=== PATIENT | female | born 1980 | race Caucasian/White ===

== ENCOUNTER 2019-05-23 23:36 | Emergency (ER) | payer OTHER, SELFPAY ==
[2019-05-23 23:43] VITALS: BP 145/87; PULSE 92; RESP 16; TEMP 36.6; O2SAT 98
--- NOTE | 2019-05-24 00:01 | ED.FEVER ---
HPI - Fever General Chief Complaint: Fever Stated Complaint: sinus pressure pain/ headache/ uti sx/ fever Time Seen by Provider: 05/23/19 23:58 Source: patient Mode of arrival: ambulatory Limitations: no limitations History of Present Illness HPI Narrative: Pt is a 38 y/o female who presents to the ED with c/o a fever of 101 and chills that started today. Pt states that she has had congestion, lt sinus pressure, CAZARES, sore throat, and otalgia for a couple of days. Last night she noticed dysuria that worsened today. She has been taking Tylenol, Mucinex, Zyrtec, and Afrin with some relief. Pt notes that her roommate was Dx with bronchitis last week and she had similar Sx. Pt was Dx with a kidney infection in October 2018 and her dysuria feels similar to when she had the kidney infection. She denies any recent foreign or domestic travel. elicited complaint: fever Onset (ago): day(s) (today) Measured temperature: 38.3 C Context: sick contacts Relieving factors: acetaminophen and cold medicine Associated symptoms: chills, dysuria and other (inus congestion, lt sinus pressure, CAZARES, throat, and otalgia) Related Data Allergies Allergy/AdvReac Type Severity Reaction Status Date / Time No Known Allergies Allergy Verified 03/08/19 05:55 Review of Systems Review of Systems: All systems reviewed & are unremarkable except as noted in HPI and below Constitutional: Constitutional: Reports chills and Reports fever(s) ENT: Reports otalgia, Reports nasal congestion, Reports sinus pain, Reports sinus pressure and Reports sore throat Genitourinary: Genitourinary: Reports dysuria Neurologic: Reports headache(s) PMFSH Past Medical History Medical History (Updated 05/24/19 @ 01:00 by Johnna Romero MD) ADD (attention deficit disorder) Anxiety Colitis Depression Perforated nasal septum Surgical History Surgical History (Updated 05/24/19 @ 00:23 by Lauro Underwood) No significant past surgical history Social History Social History Smoking status: Never smoker Alcohol intake: current Exam Narrative: Exam Narrative: GENERAL: Well-appearing, well-nourished, and in no acute distress. HEAD: Normocephalic, atraumatic. EYES: PERRLA and EOMI. ENT: Nares clear, no rhinorrhea or epistaxis. Mucous membranes moist. TM clear. Mild maxillary tenderness. NECK: Supple. CHEST: Clear to auscultation. No respiratory distress. HEART: Regular rate and rhythm. No murmur heard. Normal peripheral pulses. ABDOMEN: Soft, nontender, nondistended, normal active bowel sounds. EXTREMITIES: Normal range of motion. No edema. SKIN: Warm, dry, no rash. NEURO: No focal deficits. Alert and oriented X3. Course Vital Signs Vital signs: Vital Signs Temperature 36.6 C 05/23/19 23:43 Pulse Rate 92 05/23/19 23:43 Respiratory Rate 16 05/23/19 23:43 Blood Pressure 145/87 H 05/23/19 23:43 Pulse Oximetry 98 05/23/19 23:43 Temperature 36.6 C 05/23/19 23:43 Pulse Rate 92 05/23/19 23:43 Respiratory Rate 16 05/23/19 23:43 Blood Pressure 145/87 H 05/23/19 23:43 Pulse Oximetry 98 05/23/19 23:43 MDM - Fever MDM Narrative Medical decision making narrative: Patient presented for evaluation of sinus pain, sore throat, and urinary frequency, dysuria. Patient is well-appearing, no sign of otitis media or strep pharyngitis on exam. Patient does have's findings which are consistent with viral sinusitis. She is well-appearing, afebrile. No cervical lymphadenopathy. No respiratory distress. Patient found to have a urinary tract infection, given symptoms, will treat with antibiotic as this is most consistent with cystitis that she has no back pain and no findings concerning for pyelonephritis at this point. Patient was then discharged home with antibiotic, advised to continue Flonase, other symptomatic care for sinusitis. Lab Data Labs: Lab Results 05/24/19 Range/Units 00:27
[2019-05-24 00:38] LABS: Add Urine Microscopic? YES; Appearance Urine Cloudy (Clear); Bilirubin Urine Negative (Negative); Blood Urine Negative (Negative); Color Urine Yellow (Yellow); Glucose Urine UA Negative (Negative); Ketones Urine Negative (Negative); Leukocyte Esterase Ur 2+ LEU/UL (Negative); Mucus Urine Few /lpf; Nitrate Urine Negative (Negative); Protein Urine 1+ mg/dL (Negative); Specific Grav Ur 1.023 (1.001-1.035); Squamous Epithelial Cell Urine Moderate /hpf (Few); Urobilinogen Urine Negative mg/dL (<2.0); WBC Urine >75 /hpf
[2019-05-24 01:09] VITALS: BP 132/81; PULSE 85; RESP 16; TEMP 36.5; O2SAT 99
== END 2019-05-24 01:11 | disposition home or self-care (01) ==
PROVIDERS: Emergency Provider Emergency Medicine; PCP Family Medicine
DX: N30.00 Acute cystitis without hematuria (principal); J01.00 Acute maxillary sinusitis, unspecified
CPT/HCPCS: 81001; 87077; 87081; 87086; 87088; 87804; 87880; 99283

== ENCOUNTER 2019-09-10 23:38 | Emergency (ER) | payer OTHER, SELFPAY ==
--- NOTE | ~2019-09-10 | XR_ITS ---
EXAMINATION: XR chest 1V portable DATE: 09/11/2019 00:29 INDICATION: Weakness TECHNIQUE: frontal view of the chest was obtained. COMPARISON: None FINDINGS: The lungs are clear with no focal airspace opacities, pulmonary edema, pleural effusion or pneumothor ax. The cardiomediastinal silhouette is normal. Visualized bones and soft tissues are unremarkable. IMPRESSION: 1. No acute cardiopulmonary disease. Reviewed, dictated and finalized at location A.
[2019-09-11 00:03] VITALS: BP 117/86; PULSE 101; PULSE 93; RESP 18; TEMP 37.4; O2SAT 97
[2019-09-11] MEDS: SODIUM CHLORIDE 0.9% IV 1,000 ML 999 ML IV CONT (00:48)
[2019-09-11 00:58] LABS: Basophils Percent Auto 0.5 % (0.2-1.2); Eosinophils Absolute Auto 0.3 K/mm3 (0-0.3); Eosinophils Percent Auto 4.1 % (0-4.4); Hemoglobin 13.1 g/dL (12.0-15.0); Immature Granulocyte Absolute 0.02 K/mm3 (0.00-0.031); Immature Granulocyte Percent A 0.3 % (0-0.5); Lymphocytes Absolute Auto 1.01 K/mm3 (0.9-3.2); Mean Corpuscular HGB Conc 32.8 g/dl (32-36); Mean Corpuscular Hemoglobin 28.5 pg (26-34); Mean Corpuscular Volume 87.1 fl (80-100); Mean Platelet Volume 9.9 fl (7.4-10.4); Monocytes Absolute Auto 0.8 K/mm3 (0.1-0.6); Monocytes Percent Auto 13.3 % (2.6-8.5); Neutrophils Absolute Auto 4.2 K/mm3 (1.3-6.7); Neutrophils Percent Auto 65.8 % (45.5-73.1); Platelet Count Result 294 k/mm3 (150-375); Red Blood Count 4.59 M/mm3 (4.2-5.4); Red Cell Distribution Width 12.5 % (11.5-14.5); White Blood Count 6.3 K/mm3 (4.5-10.0)
[2019-09-11 01:03] LABS: Alanine Aminotransferase 22 U/L (4-35); Albumin Level 4.3 g/dL (3.5-5.1); Alkaline Phosphatase 45 U/L (38-126); Aspartate Amino Transferase 27 U/L (14-36); Bilirubin,Total < 0.1 mg/dL (0.2-1.3); Blood Urea Nitrogen 10 mg/dL (7-17); Carbon Dioxide 24 mmol/L (22-30); Chloride 103 mmol/L (98-107); Estimated Glomerular Filt Rate > 60; Glucose 106 mg/dL (65-105); Potassium 3.6 mmol/L (3.4-5.0); Sodium 136 mmol/L (137-145)
[2019-09-11 01:14] LABS: Add Urine Microscopic? YES; Appearance Urine Clear (Clear); Bilirubin Urine Negative (Negative); Blood Urine 1+ (Negative); Color Urine Yellow (Yellow); Glucose Urine UA Negative (Negative); Ketones Urine Negative (Negative); Leukocyte Esterase Ur Negative LEU/UL (Negative); Mucus Urine Few /lpf; Nitrate Urine Negative (Negative); Protein Urine Negative (Negative); Specific Grav Ur 1.024 (1.001-1.035); Squamous Epithelial Cell Urine Occasional /hpf (Few); Urobilinogen Urine Negative mg/dL (<2.0); WBC Urine 0-3 /hpf
[2019-09-11] MEDS: KETOROLAC 30 MG/ML VIAL (*BKC) IV PUSH (01:37)
[2019-09-11 01:54] VITALS: BP 131/92; PULSE 93; RESP 21; O2SAT 100
--- NOTE | 2019-09-11 02:41 | ED.GENADULT ---
HPI - General Adult General Chief complaint: Weakness Stated complaint: cough, body aches, weakness Time Seen by Provider: 09/10/19 23:42 Source: RN notes reviewed History of Present Illness HPI narrative: Patient presents emergency department from home for multiple complaints. Patient states that beginning 4 days ago she experienced generalized fatigue with body aches sore throat nonproductive cough abdominal cramping and diarrhea patient states that she tried taking Tylenol at home with no relief. She denies any fevers or chills ear pain shortness of breath vomiting or any other symptoms. She states she was at a the day before the symptoms started Related Data Allergies Allergy/AdvReac Type Severity Reaction Status Date / Time No Known Allergies Allergy Verified 09/11/19 01:14 Review of Systems Review of Systems: Narrative: Gen.: Denies fevers or chills reports malaise Eyes: Denies eye pain or visual change ENT: Denies rhinorrhea and sore throat Respiratory: Denies shortness of breath reports cough CV: Denies chest pain or palpitations GI: Reports abdominal cramping and diarrhea denies vomiting or emesis denies burning, urgency, frequency or hematuria Musculoskeletal: Reports low back pain Neuro: Denies numbness, tingling, weakness or focal weakness reports intermittent headache Skin: Denies rash Except as documented, all other systems reviewed and negative PMFSH Past Medical History Medical History (Updated 09/11/19 @ 02:45 by Carlos Waldron DO) Patient denies significant medical history Social History Social History (Updated 09/11/19 @ 02:43 by Carlos Waldron DO) Smoking status: Never smoker Exam Narrative: Exam Narrative: APPEARANCE: No acute distress, nontoxic, resting in bed EYES: EOMI, Sanjay HEENT: Normocephalic, atraumatic, bilateral turbinates boggy, oromucosa moist Neck: Supple full range of motion without pain, no managements RESPIRATORY: No respiratory distress Clear to auscultation bilaterally with no rhonchi wheezing or rales. CARDIOVASCULAR: Regular rate and rhythm without murmurs rubs or gallops. ABDOMINAL: Soft, nontender, nondistended, no rebound or guarding MUSCULOSKELETAl: Moves all extremities. No clubbing, cyanosis or edema. NEURO: Awake and alert x 3. Following commands, speech normal, no focal deficits SKIN:: Warm, dry. No rashes lesions or abrasions PSYCHIATRIC: Normal affect/mood, Course Course Emergency Course: Discussed with patient results of workup and diagnosis. Discussed need for follow-up with primary care, proper use of medication, and reasons to return to the emergency department. Patient understands and agrees to current treatment plan. Discussed with patient covert swab need for self isolation patient in agreement at this time Vital Signs Vital signs: Vital Signs Temperature 99.3 F 09/11/19 00:03 Pulse Rate 101 H 09/11/19 00:03 Respiratory Rate 18 09/11/19 00:03 Blood Pressure 117/86 09/11/19 00:03 Pulse Oximetry 97 09/11/19 00:03 Temperature 99.3 F 09/11/19 00:03 Pulse Rate 93 09/11/19 01:54 Respiratory Rate 21 H 09/11/19 01:54 Blood Pressure 131/92 H 09/11/19 01:54 Pulse Oximetry 100 09/11/19 01:54 Medical Decision Making Vital Signs Vital Signs: Vital Signs Temperature 99.3 F 09/11/19 00:03 Pulse Rate 101 H 09/11/19 00:03 Respiratory Rate 18 09/11/19 00:03 Blood Pressure 117/86 09/11/19 00:03 Pulse Oximetry 97 09/11/19 00:03 Temperature 99.3 F 09/11/19 00:03 Pulse Rate 93 09/11/19 01:54 Respiratory Rate 21 H 09/11/19 01:54 Blood Pressure 131/92 H 09/11/19 01:54 Pulse Oximetry 100 09/11/19 01:54 Lab Data Result diagrams: 09/11/19 00:45 09/11/19 00:45 Labs: Lab Results 09/11/19 09/11/19 09/11/19 Range/Units 00:45 00:45 00:46 WBC 6.3 (4.5-10.0) K/mm3 RBC 4.59 (4.2-5.4) M/mm3 Hgb 13.1 (12.0-15.0) g/dL Hct 40.0 (37.0
[2019-09-11 03:02] VITALS: BP 131/89; PULSE 78; RESP 15; O2SAT 96
[2019-09-12 21:03] LABS: SARS-CoV-2 RNA PCR Positive
== END 2019-09-11 03:04 | disposition home or self-care (01) ==
PROVIDERS: Emergency Provider Emergency Medicine
DX: U07.1 COVID-19 (principal)
CPT/HCPCS: 36415; 71045; 80053; 81001; 81025; 85025; 87081; 87635; 87880; 96361; 96374; 99284; C9803; J1885; J7030; U0003

== ENCOUNTER 2020-04-18 19:57 | Emergency (ER) | payer OTHER, SELFPAY ==
--- NOTE | ~2020-04-18 | XR_ITS ---
EXAMINATION: XR chest 1V portable DATE: 04/18/2020 22:02 INDICATION: Upper back pain with movement TECHNIQUE: frontal view of the chest was obtained. COMPARISON: Chest radiograph dated 09/11/2019 FINDINGS: Minimal lingular linear discoid atelectasis at the costophrenic angle. Lungs remain otherwise clear w ith no other airspace opacities, pulmonary edema, pleural effusion or pneumothorax. The cardiomediast inal silhouette is normal. Mild thoracic levocurvature. IMPRESSION: 1. Minimal lingular discoid atelectasis. Reviewed, dictated and finalized at location A. RIGGER
[2020-04-18 20:01] VITALS: BP 144/88; PULSE 99; RESP 16; TEMP 36.1; O2SAT 100
--- NOTE | 2020-04-18 21:52 | ECG_ITS ---
Measurements Intervals Mandan Rate: 82 P: 71 MA: 134 QRS: 74 QRSD: 97 T: 58 QT: 351 QTc: 412 Interpretive Statements SINUS RHYTHM INCOMPLETE RIGHT BUNDLE BRANCH BLOCK BORDERLINE ECG Electronically Signed On 04-19-2020 6:26:49 MANAGER SYSTEM by Surinder Aj D.O.
[2020-04-18 22:14] LABS: Basophils Percent Auto 0.3 % (0.2-1.2); Eosinophils Absolute Auto 0.2 K/mm3 (0-0.3); Hematocrit 43.6 % (37.0-47.0); Hemoglobin 14.2 g/dL (12.0-15.0); Immature Granulocyte Absolute 0.03 K/mm3 (0.00-0.031); Immature Granulocyte Percent A 0.4 % (0-0.5); Lymphocytes Absolute Auto 2.82 K/mm3 (0.9-3.2); Lymphocytes Percent Auto 38.4 % (18.3-44.2); Mean Corpuscular HGB Conc 32.6 g/dl (32-36); Mean Corpuscular Hemoglobin 28.9 pg (26-34); Mean Corpuscular Volume 88.6 fl (80-100); Mean Platelet Volume 9.5 fl (7.4-10.4); Monocytes Absolute Auto 0.7 K/mm3 (0.1-0.6); Monocytes Percent Auto 9.1 % (2.6-8.5); Neutrophils Absolute Auto 3.7 K/mm3 (1.3-6.7); Neutrophils Percent Auto 49.8 % (45.5-73.1); Platelet Count Result 315 k/mm3 (150-375); Red Blood Count 4.92 M/mm3 (4.2-5.4); Red Cell Distribution Width 12.7 % (11.5-14.5); White Blood Count 7.4 K/mm3 (4.5-10.0)
[2020-04-18 22:18] VITALS: PULSE 91; RESP 15
[2020-04-18 22:19] VITALS: BP 149/107; PULSE 96; RESP 16
[2020-04-18 22:26] LABS: Alanine Aminotransferase 23 U/L (4-35); Albumin Level 4.4 g/dL (3.5-5.1); Alkaline Phosphatase 47 U/L (38-126); Anion Gap 6 mmol/L (8-16); Aspartate Amino Transferase 31 U/L (14-36); Bilirubin,Total 0.2 mg/dL (0.2-1.3); Blood Urea Nitrogen 13 mg/dL (7-17); Calcium 9.5 mg/dL (8.4-10.2); Carbon Dioxide 30 mmol/L (22-30); Chloride 102 mmol/L (98-107); Estimated CRCL calculation 81 ml/min; Estimated Glomerular Filt Rate > 60; Glucose 87 mg/dL (65-105); Potassium 3.8 mmol/L (3.4-5.0); Sodium 138 mmol/L (137-145)
[2020-04-18] MEDS: KETOROLAC 30 MG/ML VIAL (*BKC) IV PUSH (22:26)
[2020-04-18] MEDS: ORPHENADRINE CITRATE 100 MG TABLET.ER PO (22:26)
[2020-04-18] MEDS: ONDANSETRON INJ 4 MG/2 ML VIAL (22:27)
[2020-04-18] MEDS: MORPHINE SULFATE (*CRX) 4 MG/ML INJ IV PUSH (22:27)
[2020-04-18 22:33] LABS: D Dimer 0.27 ug/mL (<0.48)
[2020-04-18 22:38] LABS: Troponin I < 0.012 ng/mL (0.000-0.034)
--- NOTE | 2020-04-18 23:04 | ED.GENADULT ---
HPI - General Adult General Chief complaint: Back Pain/Injury Stated complaint: upper back pain Time Seen by Provider: 04/18/20 21:45 History of Present Illness HPI narrative: Patient is a 39-year-old female that presents the emergency department with chief complaint of upper back pain. Patient states in the left upper back in the scapular area she has a spasm pain area patient reports that the pain is worse with movement and improved with rest. Patient denies focal neurological deficit denies paresthesias denies bowel or bladder. Patient reports that the pain is worse with inspiration Related Data Allergies Allergy/AdvReac Type Severity Reaction Status Date / Time No Known Allergies Allergy Verified 04/18/20 20:00 Review of Systems Review of Systems: Narrative: A 10 system review of systems was completed on the patient and is negative except for what is stated in the HPI. Nursing and ancillary documentation was reviewed. [facility], [facility] Past Medical History Medical History Patient denies significant medical history Social History Social History Smoking status: Never smoker Gender identity (if verbalized by the patient): Female Exam Narrative: Exam Narrative: GENERAL: Well-appearing, well-nourished, and in no acute distress. HEAD: Normocephalic, atraumatic. EYES: PERRLA and EOMI. ENT: Nares clear, no rhinorrhea or epistaxis. Mucous membranes moist. NECK: Supple. CHEST: Clear to auscultation. No respiratory distress., There is tenderness to palpation in the paraspinous muscles in the back, left side HEART: Regular rate and rhythm. No murmur heard. Normal peripheral pulses. ABDOMEN: Soft, nontender, nondistended, normal active bowel sounds. EXTREMITIES: Normal range of motion. No edema. SKIN: Warm, dry, no rash. NEURO: No focal deficits. Alert and oriented x3. PSYCH: Normal mood and affect. Course Course Emergency Course: Patient was given a dose of Toradol morphine and Norflex. Chest x-ray shows no evidence of focal finding. EKG shows no evidence of acute ischemia D-dimer was negative. Troponin was negative. Vital Signs Vital signs: Vital Signs Temperature 36.1 C L 04/18/20 20:01 Pulse Rate 99 04/18/20 20:01 Respiratory Rate 16 04/18/20 20:01 Blood Pressure 144/88 H 04/18/20 20:01 Pulse Oximetry 100 04/18/20 20:01 Temperature 36.1 C L 04/18/20 20:01 Pulse Rate 96 04/18/20 22:19 Respiratory Rate 16 04/18/20 22:19 Blood Pressure 149/107 H 04/18/20 22:19 Pulse Oximetry 100 04/18/20 20:01 Medical Decision Making Vital Signs Vital Signs: Vital Signs Temperature 36.1 C L 04/18/20 20:01 Pulse Rate 99 04/18/20 20:01 Respiratory Rate 16 04/18/20 20:01 Blood Pressure 144/88 H 04/18/20 20:01 Pulse Oximetry 100 04/18/20 20:01 Temperature 36.1 C L 04/18/20 20:01 Pulse Rate 96 04/18/20 22:19 Respiratory Rate 16 04/18/20 22:19 Blood Pressure 149/107 H 04/18/20 22:19 Pulse Oximetry 100 04/18/20 20:01 Lab Data Result diagrams: 04/18/20 22:03 04/18/20 22:03 Labs: Lab Results 04/18/20 04/18/20 04/18/20 Range/Units 22:03 22:03 22:03 WBC 7.4 (4.5-10.0) K/mm3 RBC 4.92 (4.2-5.4) M/mm3 Hgb 14.2 (12.0-15.0) g/dL Hct 43.6 (37.0-47.0) % MCV 88.6 (80-100) fl MCH 28.9 (26-34) pg MCHC 32.6 (32-36) g/dl RDW 12.7 (11.5-14.5) % Plt Count 315 (150-375) k/mm3 MPV 9.5 (7.4-10.4) fl Immature Gran % (Auto) 0.4 (0-0.5) % Neut % (Auto) 49.8 (45.5-73.1) % Lymph % (Auto) 38.4 (18.3-44.2) % Forrest % (Auto) 9.1 H (2.6-8.5) % Eos % (Auto) 2.0 (0-4.4) % Baso % (Auto) 0.3 (0.2-1.2) % Lymph # (Auto) 2.82 (0.9-3.2) K/mm3 Forrest # (Auto) 0.7 H (0.1-0.6) K/mm3 Eos # (Auto) 0.2 (0-0.3) K/mm3 Baso # (Auto) 0.0 (0.0-0.1) K/mm
[2020-04-18 23:32] VITALS: BP 151/94; PULSE 86; RESP 16; O2SAT 96
== END 2020-04-18 23:34 | disposition home or self-care (01) ==
PROVIDERS: Emergency Provider Emergency Medicine
DX: S29.019A Strain of muscle and tendon of unspecified wall of thorax, initial encounter (principal); X58.XXXA Exposure to other specified factors, initial encounter
CPT/HCPCS: 36415; 71045; 80053; 81025; 84484; 85025; 85380; 93005; 96374; 96375; 99284; A9270; J1885; J2270; J2405

== ENCOUNTER 2020-09-05 13:25 | Outpatient (CLI) | payer OTHER, SELFPAY ==
[2020-09-05 14:03] LABS: Basophils Percent Auto 0.3 % (0.2-1.2); Eosinophils Absolute Auto 0.2 K/mm3 (0-0.3); Hematocrit 43.5 % (37.0-47.0); Hemoglobin 14.1 g/dL (12.0-15.0); Immature Granulocyte Absolute 0.03 K/mm3 (0.00-0.031); Immature Granulocyte Percent A 0.3 % (0-0.5); Lymphocytes Absolute Auto 2.09 K/mm3 (0.9-3.2); Lymphocytes Percent Auto 21.3 % (18.3-44.2); Mean Corpuscular HGB Conc 32.4 g/dl (32-36); Mean Corpuscular Volume 89.3 fl (80-100); Mean Platelet Volume 9.7 fl (7.4-10.4); Neutrophils Absolute Auto 6.5 K/mm3 (1.3-6.7); Neutrophils Percent Auto 66.1 % (45.5-73.1); Platelet Count Result 288 k/mm3 (150-375); Red Blood Count 4.87 M/mm3 (4.2-5.4); Red Cell Distribution Width 12.8 % (11.5-14.5); White Blood Count 9.8 K/mm3 (4.5-10.0)
[2020-09-05 14:15] LABS: Alanine Aminotransferase 19 U/L (4-35); Albumin Level 4.7 g/dL (3.5-5.1); Alkaline Phosphatase 46 U/L (38-126); Anion Gap 10 mmol/L (8-16); Aspartate Amino Transferase 28 U/L (14-36); Bilirubin,Total 0.4 mg/dL (0.2-1.3); Blood Urea Nitrogen 11 mg/dL (7-17); Calcium 9.7 mg/dL (8.4-10.2); Carbon Dioxide 25 mmol/L (22-30); Chloride 103 mmol/L (98-107); Cholesterol 154 mg/dL (0-200); Estimated Glomerular Filt Rate > 60; Glucose 86 mg/dL (65-105); HDL Direct 84 mg/dL; Potassium 4.3 mmol/L (3.4-5.0); Sodium 138 mmol/L (137-145); Triglycerides 92 mg/dL (<150)
[2020-09-05 14:26] LABS: LDL Cholesterol Direct 36 mg/dL
[2020-09-05 15:58] LABS: Vitamin D 25 Hydroxy 40.7 ng/mL
[2020-09-05 16:22] LABS: Hepatitis C Virus Antibody Negative (Negative)
[2020-09-06 09:22] LABS: Rapid Plasma Reagin Non-Reactive (NonReactive)
[2020-09-09 00:33] LABS: HIV DNA PCR (Qual) Not Detected (Not Detected)
== END 2020-09-05 13:26 | disposition home or self-care (01) ==
PROVIDERS: PCP Family Medicine; Visit Provider Nurse Practitioner
DX: Z13.6 Encounter for screening for cardiovascular disorders (principal); Z11.3 Encounter for screening for infections with a predominantly sexual mode of transmission; R53.83 Other fatigue; E55.9 Vitamin D deficiency, unspecified
CPT/HCPCS: 36415; 80053; 80061; 82306; 84443; 85025; 86592; 86803; 87535

== ENCOUNTER 2021-06-12 19:07 | Emergency (ER) | payer OTHER, SELFPAY ==
--- NOTE | 2021-06-12 19:13 | ED.URI ---
HPI - URI/Sore Throat General Chief Complaint: Upper Respiratory Infection Stated Complaint: COUGH Time Seen by Provider: 06/12/21 19:10 Source: patient and RN notes reviewed History of Present Illness HPI Narrative: Patient is a 40-year-old female who presents the urgent care with complaints of 1 week cough, stuffy nose, fatigue, runny nose, wheezing and intermittent shortness of breath. Patient states that it started when she arrived to [place] 1 week ago and seems to have worsened in the last 2 days after coming home. Patient states that she is takes a daily Zyrtec-D and has been using Tylenol Cold and flu, NyQuil and Benadryl. Patient states that when she lays down the wheezing is worse. Denies of any fever, chills, nausea, vomiting. States that the cough is sometimes productive with clear drainage. No other acute complaints. No acute distress noted. Patient aware of the plan of care. Some parts of this dictation were generated by voice recognition software and may contain typographical and/or grammatical inaccuracies. Related Data Home Medications Medication Instructions Recorded Confirmed etonogestrel 0.12 mg-ethinyl vag ring VAGINAL 09/04/20 01/02/21 estradiol 0.015 mg/24 hr vaginal ring cetirizine 10 mg disintegrating 10 mg PO DAILY 10/03/20 01/02/21 tablet Allergies Allergy/AdvReac Type Severity Reaction Status Date / Time No Known Allergies Allergy Verified 03/06/21 12:22 Review of Systems Review of Systems: CONSTITUTIONAL: Denies fever, chills, or sweats. EYES: Denies visual changes, redness, or discharge. ENT: Reports rhinorrhea, postnasal drainage and sinus congestion CARDIOVASCULAR: Denies chest pain, palpitations, or edema. RESPIRATORY: Reports of cough with intermittent wheezing and dyspnea GASTROINTESTINAL: Denies abdominal pain, nausea, vomiting, or diarrhea. GENITOURINARY: Denies dysuria or hematuria. SKIN: Denies rash or itching. MUSCULOSKELETAL: Denies back pain, joint pain, or myalgia. NEUROLOGIC: Denies headache, numbness, or weakness. All other systems reviewed are negative, except as documented in HPI. [facility] Past Medical History Medical History ADD (attention deficit disorder) Anxiety Colitis Depression Patient denies significant medical history Patient denies significant medical history Patient denies significant medical history Perforated nasal septum Surgical History Surgical History No significant past surgical history Family History Family History (System 03/06/21 @ 12:22 by Kristine Samuel) Mother Family history of mental disorder Family history of alcoholism Social History Social History (System 03/06/21 @ 12:22 by Kristine Samuel) Smoking status: Never smoker Alcohol intake: current Gender identity (if verbalized by the patient): Female Comments At the time of my signature, I reviewed and agree with the nursing past medical, surgical, social, and family history. There is no relevant family history pertinent to the patient complaint. Exam Narrative: GENERAL: This is a well-nourished, well-developed patient, in no apparent distress. HEAD: normocephalic, atraumatic. EYES: PERRL. Sclera clear/white. Vision is grossly intact. EARS: External ears normal, auditory canals clear and without drainage, TMs normal without perforation. Hearing grossly intact. NOSE: External nose normal with no obvious nasal discharge, bilateral erythemic nares with clear rhinorrhea THROAT: Mucous membranes moist, posterior pharynx clear. Moderate postnasal drainage NECK: Neck supple CARDIOVASCULAR: Regular rate and rhythm without murmurs, gallops, or rubs. RESPIRATORY: Clear to auscultation. Breath sounds equal bilaterally. No wheezes, rales, or rhonchi. SKIN: warm, intact with no suspicious lesions or rash, good texture and turgor. NEURO: awake, alert, and oriented to p
[2021-06-12 19:17] VITALS: BP 140/90; PULSE 92; RESP 16; TEMP 36.6; O2SAT 99
== END 2021-06-12 19:32 | disposition home or self-care (01) ==
PROVIDERS: Emergency Provider Nurse Practitioner Family; PCP Family Medicine
DX: J40 Bronchitis, not specified as acute or chronic (principal); J30.9 Allergic rhinitis, unspecified
CPT/HCPCS: 87804; 99213; G0463

== ENCOUNTER 2021-08-16 10:19 | Outpatient (CLI) | payer OTHER, SELFPAY ==
--- NOTE | 2021-08-16 13:32 | WPDPFTINT ---
PFT Procedure Performed PFT Procedure Performed Spirometry with Pre/Post Bronchodilator Plethysmography (Lung Vol) Diffusing Cap (DLCO) Flow Vol Loop PFT Interpretation Lung volumes were measured with the body plethysmography method. Lung volumes are unremarkable. Spirometry showed normal expiratory flow rates, normal FEV1 to FVC ratio 73%, but diminished mid expiratory flow rates of 32% predicted suggestive of small airway disease. Following administration of a bronchodilator there was no significant increase in expiratory flow rates. The flow volume loop is consistent with a small airway disease. Lung diffusion capacity is within the normal range at 81% predicted. Impression: Small airway disease. No response to bronchodilators on this testing. Lung diffusion capacity within the normal range.
== END 2021-08-16 10:20 | disposition home or self-care (01) ==
PROVIDERS: PCP Family Medicine; Visit Provider Nurse Practitioner
DX: R06.02 Shortness of breath (principal); J44.9 Chronic obstructive pulmonary disease, unspecified
CPT/HCPCS: 94060; 94726; 94729

== ENCOUNTER 2021-10-10 16:07 | Outpatient (CLI) | payer OTHER, SELFPAY ==
--- NOTE | ~2021-10-10 | CT_ITS ---
EXAMINATION: CT diagnostic chest wo con DATE: 10/10/2021 16:28 INDICATION: Coughing, wheezing, SOB TECHNIQUE: Computed tomography (CT) of the chest was performed without intravenous contrast. Addition al 3D reconstructions utilizing coronal maximum intensity projection (MIP) were performed. Automated exposure control and iterative reconstruction technique were employed. The dose-length product was 12 1.99 mGy-cm. COMPARISON: None FINDINGS: Mild linear discoid atelectasis in the basilar left lower lobe and in the medial right middle lobe. L ungs are otherwise clear with no pneumonia, pulmonary edema, suspicious pulmonary nodules or pleural effusion. Heart size is normal. No pericardial effusion. Thoracic aorta is normal in caliber. No path ologically enlarged thoracic lymphadenopathy. Visualized upper abdomen is unremarkable. Mild S-shaped curvature of the thoracic spine. IMPRESSION: 1. No acute cardiopulmonary disease. Reviewed, dictated and finalized at location A.
== END 2021-10-10 16:08 | disposition home or self-care (01) ==
PROVIDERS: PCP Family Medicine; Visit Provider Physician Assistant
DX: J45.909 Unspecified asthma, uncomplicated (principal); R05.9 Cough, unspecified; M43.9 Deforming dorsopathy, unspecified
CPT/HCPCS: 71250

== ENCOUNTER 2022-07-03 17:19 | Outpatient (CLI) | payer OTHER, SELFPAY ==
[2022-07-03 17:34] LABS: Appearance Urine Clear (Clear); Bilirubin Urine Negative (Negative); Blood Urine Negative (Negative); Color Urine Yellow (Yellow); Glucose Urine UA Negative (Negative); Ketones Urine Negative (Negative); Leukocyte Esterase Ur Negative LEU/UL (NEGATIVE); Nitrate Urine Negative (Negative); Protein Urine Negative (Negative); Specific Grav Ur 1.004 (1.001-1.035); Urobilinogen Urine 0.2 mg/dL (<2.0)
[2022-07-03 17:38] LABS: Add Urine Microscopic? NO
== END 2022-07-03 17:20 | disposition home or self-care (01) ==
LOC: ANHLAB 17:20
PROVIDERS: PCP Family Medicine; Visit Provider Nurse Practitioner Family
DX: N89.8 Other specified noninflammatory disorders of vagina (principal); R30.9 Painful micturition, unspecified
CPT/HCPCS: 81003

== ENCOUNTER 2022-10-06 11:07 | Outpatient (CLI) | payer OTHER, SELFPAY ==
--- NOTE | ~2022-10-06 | CT_ITS ---
Head CT History: Headache Technique: Axial imaging of the brain was performed prior to and following intravenous administratio n of 100 cc of Omnipaque 350 contrast material.. Dose reduction technique was used on this scan by ut ilizing automated exposure control and iterative reconstruction technique. The dose-length product (D LP) was 1210.67 mGy-cm. Findings: There is no evidence of intracranial hemorrhage, mass lesion, or acute infarct. Focal rn chronic taryn lacunar infarct or dilated perivascular space noted in the left basal ganglia region. The ventri cles and subarachnoid spaces are normal in size. The calvarium appears normal. The visualized paran jose juan sinuses and mastoid air cells are clear. No abnormal postcontrast enhancement seen. Impression: No significant/acute abnormality seen. Focal chronic lacunar infarct versus dilated perivascular space in the left basal ganglia. Reviewed, dictated and finalized at [facility]. Impression: No significant/acute abnormality seen. Focal chronic lacunar infarct versus dilated perivascular space in the left bas al ganglia.
== END 2022-10-06 11:08 | disposition home or self-care (01) ==
LOC: ANHIMG 11:10
PROVIDERS: PCP Family Medicine; Visit Provider Nurse Practitioner Family
DX: R51.9 Headache, unspecified (principal)
CPT/HCPCS: 70470; Q9967

== ENCOUNTER 2022-10-31 01:47 | Day surgery (SDC) | payer OTHER, SELFPAY ==
[2022-10-23 12:38] VITALS: BMI 23.7
--- NOTE | 2022-10-23 13:32 | PC.NURSE ---
DISCUSSED AT LENGTH WITH PATIENT CONCERNING CONSTIPATION ISSUES AND IF SHE IS HAVING TROUBLE NEXT WEEK PRIOR TO PREP TO CALL AND WE CAN GET HER A 2 DAY PREP. PT VERBABLIZED UNDERSTANDING.
[2022-10-31 09:36] VITALS: BP 114/73; PULSE 90; RESP 20; TEMP 36.2; O2SAT 100; BMI 23.1
--- NOTE | 2022-10-31 09:41 | WPDANESEPPF ---
Anes - Initial Pre Proc Eval Procedure: Operation Date: 10/31/22 10:45 Proposed Procedures p Colonoscopy - Ross Hawthorne MD Date/Time: 10/31/22 09:41 Surgeon: Ross Hawthorne MD Pre Op Diagnosis: IBS Patient Data Age: 41 Gender: F Height: 1.55 m Weight: 55.6 kg Last Vital Signs Temp 36.2 C L 10/31/22 09:36 Pulse 90 10/31/22 09:36 Resp 20 10/31/22 09:36 BP 114/73 10/31/22 09:36 Pulse Ox 100 10/31/22 09:36 O2 Del Method Room Air 10/31/22 09:36 Allergies Allergy/AdvReac Type Severity Reaction Status Date / Time DAIRY PRODUCTS Allergy Intermediate Itching Uncoded 10/31/22 09:34 Home Medications Medication Instructions Recorded Confirmed Type cetirizine 10 mg disintegrating 10 mg PO DAILY 10/03/20 10/23/22 History tablet (Zyrtec) fluticasone propionate 50 1 - 2 spray intranasal BID #16 mL 03/06/21 10/23/22 Rx mcg/actuation nasal spray,suspension (Flonase Allergy Relief) albuterol sulfate 90 mcg/actuation 2 puff inhalation QID PRN 11/13/21 10/23/22 Rx aerosol inhaler shortness of breath or wheezing #8 grams etonogestrel 0.12 mg-ethinyl 1 vag ring vaginal .see comment #3 04/08/22 10/23/22 Rx estradiol 0.015 mg/24 hr vaginal ea ring buspirone 5 mg tablet 5 mg PO TID PRN anxiety #90 tabs 09/10/22 10/23/22 Rx diclofenac sodium 75 mg 75 mg PO BID #90 tabs 10/02/22 10/23/22 Rx tablet,delayed release triamcinolone acetonide 0.1 % 1 applic topical BID #80 grams 10/02/22 10/23/22 Rx topical ointment atorvastatin 10 mg tablet (Lipitor) 10 mg PO DAILY #90 tabs 10/07/22 10/23/22 Rx alprazolam 0.25 mg tablet (Xanax) 0.25 mg PO DAILY PRN anxiety 10/23/22 10/23/22 History aspirin 81 mg capsule 81 mg PO DAILY 10/23/22 10/23/22 History bisacodyl 5 mg tablet 15 mg PO PRN PRN Constipation 10/23/22 10/23/22 History ferrous sulfate 27 mg iron tablet 27 mg PO DAILY 10/23/22 10/23/22 History magnesium hydroxide 400 mg/5 mL 1,500 mg PO PRN PRN Constipation 10/23/22 10/23/22 History oral suspension (Milk of Magnesia) multivitamin 1 tablet PO DAILY 10/23/22 10/23/22 History dextroamphetamine-amphetamine 10 10 mg PO DAILY #30 tabs 10/29/22 10/31/22 Rx mg tablet (Adderall) trazodone 50 mg tablet 50 mg PO QHS PRN insomnia #30 tabs 10/29/22 10/31/22 Rx Patient hx anesthesia problems: none Family hx anesthesia problems: none Results Review: All pre-operative results and documents have been reviewed as part of the pre-operative evaluation. [facility] Past Medical History Medical History Abnormal CT of brain ADD (attention deficit disorder) Allergic asthma Anxiety Asthma Chronic urticaria Colitis Depression Frequent headaches Hx LEEP (loop electrosurgical excision procedure), cervix, 2006 Low grade squamous intraepith lesion on cytologic smear cervix (lgsil) Perforated nasal septum Surgical History Surgical History History of nasal septoplasty (~03/2021) Family History Family History Mother Family history of mental disorder Family history of alcoholism Social History Social History Smoking status: Never smoker Alcohol intake: current Substance use: never Substance use type: does not use Lack of Transportation: No Lack of Food: Never True Current Housing: I Have Housing Concerned About Future Housing: No Difficulty Paying Gas/Electric Bills: No Difficulty Paying for Meds: No Currently Unemployed: No Education: Associate Degree Difficulty w/ Childcare or Family Care: No Living arrangements: with family Occupation/Education: occupation Additional occupation/education comments: [employer] Gender identity (if verbalized by the patient): Female Spiritual care concerns: No Anes - Eval Final PreProcedure
[2022-10-31] MEDS: LACTATED RINGERS 1,000 ML 150 ML IV CONT (10:01)
--- NOTE | 2022-10-31 10:56 | PM.HPGS ---
History of Present Illness History of Present Illness Consent: Risks, benefits, and alternatives have been discussed and questions answered. Patient agrees to proceed with procedure. Chief complaint: IBS Narrative: Ana Arguello is a 41 year old female complains of a long history of constipation and abdominal pain. Patient has tried many if not most laxatives. She has abdominal pain relieved with bowel movements. She has been evaluated for allergies she said allergy testing is negative but she continues to follow-up with primary care service. Occasionally has bright red blood per rectum with wiping. Family history noncontributory. Patient presents today for colonoscopy. Review of Systems Review of Systems: Review of systems noncontributory. [facility] Past Medical History Medical History Abnormal CT of brain ADD (attention deficit disorder) Allergic asthma Anxiety Asthma Chronic urticaria Colitis Depression Frequent headaches Hx LEEP (loop electrosurgical excision procedure), cervix, 2006 Low grade squamous intraepith lesion on cytologic smear cervix (lgsil) Perforated nasal septum Surgical History Surgical History History of nasal septoplasty (~03/2021) Family History Family History Mother Family history of mental disorder Family history of alcoholism Social History Social History Smoking status: Never smoker Alcohol intake: current Substance use: never Substance use type: does not use Lack of Transportation: No Lack of Food: Never True Current Housing: I Have Housing Concerned About Future Housing: No Difficulty Paying Gas/Electric Bills: No Difficulty Paying for Meds: No Currently Unemployed: No Education: Associate Degree Difficulty w/ Childcare or Family Care: No Living arrangements: with family Occupation/Education: occupation 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 Gender identity (if verbalized by the patient): Female Spiritual care concerns: No Meds Home Medications and Allergies Home Medications Medication Instructions Recorded Confirmed Type cetirizine 10 mg disintegrating 10 mg PO DAILY 10/03/20 10/23/22 History tablet (Zyrtec) fluticasone propionate 50 1 - 2 spray intranasal BID #16 mL 03/06/21 10/23/22 Rx mcg/actuation nasal spray,suspension (Flonase Allergy Relief) albuterol sulfate 90 mcg/actuation 2 puff inhalation QID PRN 11/13/21 10/23/22 Rx aerosol inhaler shortness of breath or wheezing #8 grams etonogestrel 0.12 mg-ethinyl 1 vag ring vaginal .see comment #3 04/08/22 10/23/22 Rx estradiol 0.015 mg/24 hr vaginal ea ring buspirone 5 mg tablet 5 mg PO TID PRN anxiety #90 tabs 09/10/22 10/23/22 Rx diclofenac sodium 75 mg 75 mg PO BID #90 tabs 10/02/22 10/23/22 Rx tablet,delayed release triamcinolone acetonide 0.1 % 1 applic topical BID #80 grams 10/02/22 10/23/22 Rx topical ointment atorvastatin 10 mg tablet (Lipitor) 10 mg PO DAILY #90 tabs 10/07/22 10/23/22 Rx alprazolam 0.25 mg tablet (Xanax) 0.25 mg PO DAILY PRN anxiety 10/23/22 10/23/22 History aspirin 81 mg capsule 81 mg PO DAILY 10/23/22 10/23/22 History bisacodyl 5 mg tablet 15 mg PO PRN PRN Constipation 10/23/22 10/23/22 History ferrous sulfate 27 mg iron tablet 27 mg PO DAILY 10/23/22 10/23/22 History magnesium hydroxide 400 mg/5 mL 1,500 mg PO PRN PRN Constipation 10/23/22 10/23/22 History oral suspension (Milk of Magnesia) multivitamin 1 tablet PO DAILY 10/23/22 10/23/22 History dextroamphetamine-amphetamine 10 10 mg PO DAILY #30 tabs 10/29/22 10/31/22 Rx mg tablet (Adderall) trazodone 50 mg tablet 50 mg PO QHS PRN insomnia #30 tabs 10/29/22 10/31/22 Rx Allergies Allergy/AdvReac Type Severity Reactio
[2022-10-31 10:58] VITALS: BP 108/72; PULSE 86; RESP 21; O2SAT 99
[2022-10-31 11:08] VITALS: BP 108/72; PULSE 82; RESP 24; O2SAT 100
[2022-10-31 11:18] VITALS: BP 127/72; PULSE 88; RESP 36; O2SAT 100
== END 2022-10-31 11:33 | disposition home or self-care (01) ==
PROVIDERS: PCP Family Medicine; Visit Provider Internal Medicine Gastroenterology
PROC: 0DJD8ZZ Inspection of Lower Intestinal Tract, Via Natural or Artificial Opening Endoscopic (ICD-10-PCS; CPT 45378; principal; 2022-10-31 10:45)
DX: K59.00 Constipation, unspecified (principal); K64.8 Other hemorrhoids; J45.909 Unspecified asthma, uncomplicated; F41.9 Anxiety disorder, unspecified; L50.9 Urticaria, unspecified; F32.A Depression, unspecified; F98.8 Other specified behavioral and emotional disorders with onset usually occurring in childhood and adolescence; Z79.51 Long term (current) use of inhaled steroids; Z79.82 Long term (current) use of aspirin
CPT/HCPCS: 45378; J2704; J7120

== ENCOUNTER 2022-12-26 13:39 | Outpatient (CLI) | payer OTHER, SELFPAY ==
[2022-12-26 14:54] LABS: Lactic Acid Reflex 0.8 mmol/L (0.7-2.0)
[2022-12-26 15:00] LABS: Basophils Percent Auto 0.4 % (0.2-1.2); Eosinophils Absolute Auto 0.2 K/mm3 (0-0.3); Eosinophils Percent Auto 2.5 % (0-4.4); Hematocrit 43.8 % (37.0-47.0); Hemoglobin 13.8 g/dL (12.0-15.0); Immature Granulocyte Absolute 0.02 K/mm3 (0.00-0.031); Immature Granulocyte Percent A 0.2 % (0-0.5); Lymphocytes Absolute Auto 2.79 K/mm3 (0.9-3.2); Lymphocytes Percent Auto 32.7 % (18.3-44.2); Mean Corpuscular HGB Conc 31.5 g/dl (32-36); Mean Corpuscular Hemoglobin 29.1 pg (26-34); Mean Corpuscular Volume 92.4 fl (80-100); Mean Platelet Volume 10.2 fl (7.4-10.4); Neutrophils Absolute Auto 4.5 K/mm3 (1.3-6.7); Neutrophils Percent Auto 52.2 % (45.5-73.1); Platelet Count Result 330 k/mm3 (150-375); Red Blood Count 4.74 M/mm3 (4.2-5.4); Red Cell Distribution Width 12.9 % (11.5-14.5); White Blood Count 8.5 K/mm3 (4.5-10.0)
[2022-12-26 15:19] LABS: Alanine Aminotransferase 23 U/L (6-35); Albumin Level 4.7 g/dL (3.5-5.1); Alkaline Phosphatase 42 U/L (38-126); Anion Gap 9 mmol/L (8-16); Aspartate Amino Transferase 46 U/L (14-36); Bilirubin,Total 0.5 mg/dL (0.2-1.3); Blood Urea Nitrogen 13 mg/dL (7-17); Calcium 9.4 mg/dL (8.4-10.2); Carbon Dioxide 25 mmol/L (22-30); Chloride 102 mmol/L (98-107); Estimated Glomerular Filt Rate > 60; Glucose 70 mg/dL (65-110); Potassium 4.1 mmol/L (3.4-5.0); Sodium 136 mmol/L (137-145)
== END 2022-12-26 13:40 | disposition home or self-care (01) ==
LOC: ANHGOSHLAB 13:41
PROVIDERS: PCP Family Medicine; Visit Provider Nurse Practitioner Family
DX: R10.9 Unspecified abdominal pain (principal); I10 Essential (primary) hypertension
CPT/HCPCS: 36415; 80053; 83605; 85025; 87086

== ENCOUNTER 2022-12-30 14:45 | Outpatient (CLI) | payer OTHER, SELFPAY ==
--- NOTE | ~2022-12-30 | US_ITS ---
EXAMINATION: US transvaginal DATE: 12/30/2022 15:52 INDICATION: Right lower quadrant abdominal pain. TECHNIQUE: Multiple transvaginal sonographic images of the pelvis were obtained. COMPARISON: CT abdomen and pelvis 11/02/2018 FINDINGS: The uterus measures 7.7 x 3.2 x 5.3 cm. There is no free fluid in the pelvis. The endometrial complex measures 9 mm in thickness. There are small nabothian cysts in the cervix. The right ovary measures 3.3 x 1.5 x 1.6 cm. The left ovary measures 1.9 x 1.2 x 1.1 cm. There is normal vascular flow in the ovaries. IMPRESSION: 1. No etiology for the patient's symptoms. Reviewed, dictated and finalized at location E.
== END 2022-12-30 14:46 | disposition home or self-care (01) ==
PROVIDERS: PCP Family Medicine; Visit Provider Nurse Practitioner Family
DX: R10.10 Upper abdominal pain, unspecified (principal)
CPT/HCPCS: 76830

== ENCOUNTER 2023-09-19 15:34 | Emergency (ER) | payer OTHER, SELFPAY ==
--- NOTE | ~2023-09-19 | CT_ITS ---
Non-contrast CT scan of the Abdomen and Pelvis Clinical indication: Right flank pain Technique: 2.5 mm axial scans were obtained through the abdomen and pelvis without intravenous or or al contrast. Dose reduction technique was used on this scan by utilizing automated exposure control a nd iterative reconstruction technique. The dose-length product (DLP) was 236.26 mGy-cm. Findings: Images through the lung bases reveal no abnormalities. There is no evidence of renal or ureteral calculi. The kidneys and the ureters are nondilated. The liver, spleen, pancreas, gallbladder, and adrenals appear normal. There is no aortic aneurysm. There is no evidence of bowel obstruction. Normal appendix. Images through the pelvis were performed. There is no evidence of ascites or lymphadenopathy. Urinary bladder unremarkable. No adnexal mass seen. Impression: No significant abnormality seen. Reviewed, dictated and finalized at [facility]. Impression: No significant abnormality seen.
[2023-09-19 15:42] VITALS: BP 131/90; PULSE 97; RESP 18; TEMP 36.2; O2SAT 100
[2023-09-19 16:03] LABS: Basophils Percent Auto 0.5 % (0.2-1.2); Eosinophils Absolute Auto 0.2 K/mm3 (0-0.3); Eosinophils Percent Auto 2.3 % (0-4.4); Hematocrit 38.9 % (37.0-47.0); Hemoglobin 12.9 g/dL (12.0-15.0); Immature Granulocyte Absolute 0.01 K/mm3 (0.00-0.031); Immature Granulocyte Percent A 0.1 % (0-0.5); Lymphocytes Absolute Auto 2.59 K/mm3 (0.9-3.2); Lymphocytes Percent Auto 32.9 % (18.3-44.2); Mean Corpuscular HGB Conc 33.2 g/dl (32-36); Mean Corpuscular Hemoglobin 30.2 pg (26-34); Mean Corpuscular Volume 91.1 fl (80-100); Mean Platelet Volume 9.7 fl (7.4-10.4); Monocytes Absolute Auto 0.8 K/mm3 (0.1-0.6); Monocytes Percent Auto 10.5 % (2.6-8.5); Neutrophils Absolute Auto 4.2 K/mm3 (1.3-6.7); Neutrophils Percent Auto 53.7 % (45.5-73.1); Platelet Count Result 259 k/mm3 (150-375); Red Blood Count 4.27 M/mm3 (4.2-5.4); Red Cell Distribution Width 12.7 % (11.5-14.5); White Blood Count 7.9 K/mm3 (4.5-10.0)
[2023-09-19 16:05] LABS: Appearance Urine Clear (Clear); Bilirubin Urine Negative (Negative); Blood Urine Negative (Negative); Color Urine Yellow (Yellow); Glucose Urine UA Negative (Negative); Ketones Urine Negative (Negative); Leukocyte Esterase Ur Negative LEU/UL (Negative); Nitrate Urine Negative (Negative); Protein Urine Negative (Negative); Specific Grav Ur 1.005 (1.001-1.035); Urobilinogen Urine 0.2 mg/dL (<2.0); pH Urine 6.5 (5.0-9.0)
[2023-09-19] MEDS: ONDANSETRON INJ 4 MG/2 ML VIAL IV PUSH (16:05)
[2023-09-19] MEDS: SODIUM CHLORIDE 0.9% IV 1,000 ML 999 ML IV CONT (16:05)
[2023-09-19 16:13] LABS: Alanine Aminotransferase 15 U/L (6-35); Albumin Level 4.6 g/dL (3.5-5.1); Alkaline Phosphatase 37 U/L (38-126); Anion Gap 11 mmol/L (4-12); Aspartate Amino Transferase 21 U/L (14-36); Bilirubin,Total 0.3 mg/dL (0.2-1.3); Blood Urea Nitrogen 16 mg/dL (7-17); Calcium 9.6 mg/dL (8.4-10.2); Carbon Dioxide 27 mmol/L (22-30); Chloride 100 mmol/L (98-107); Estimated CRCL calculation 65 ml/min; Estimated Glomerular Filt Rate > 60; Glucose 78 mg/dL (65-110); Lipase 200 U/L (23-300); Potassium 4.1 mmol/L (3.4-5.0); Sodium 138 mmol/L (137-145)
[2023-09-19 16:28] LABS: Add Urine Microscopic? NO
--- NOTE | 2023-09-19 17:18 | ED.ABDPAIN ---
HPI - Abdominal Pain General Chief Complaint: Abdominal Pain Stated Complaint: abd pain Time Seen by Provider: 09/19/23 15:47 History of Present Illness HPI narrative: patient is a 42-year-old female who presents emergency department with chief complaint of sharp stabbing pain in the right lower side of the abdomen and suprapubic area. Patient reports that she is concerned because she had pyelonephritis before in the past patient reports she has taken ibuprofen and earlier did not really help much but now is starting to have improvement in her symptoms. Related Data Home Medications Medication Instructions Recorded Confirmed cetirizine 10 mg disintegrating 10 mg PO DAILY 10/03/20 07/21/23 tablet (Zyrtec) aspirin 81 mg capsule 81 mg PO DAILY 10/23/22 07/21/23 ferrous sulfate 27 mg iron tablet 27 mg PO DAILY 10/23/22 07/21/23 magnesium hydroxide 400 mg/5 mL 1,500 mg PO PRN PRN Constipation 10/23/22 07/21/23 oral suspension (Milk of Magnesia) multivitamin 1 tablet PO DAILY 10/23/22 07/21/23 Allergies Allergy/AdvReac Type Severity Reaction Status Date / Time DAIRY PRODUCTS Allergy Intermediate Itching Uncoded 09/19/23 16:06 trazadone AdvReac Severe sleep Uncoded 09/19/23 16:06 parlysis Review of Systems Review of Systems: A 10 system review of systems was completed on the patient and is negative except for what is stated in the HPI. Nursing and ancillary documentation was reviewed. [facility] Past Medical History Medical History Abnormal CT of brain ADD (attention deficit disorder) Allergic asthma Anxiety Asthma Chronic urticaria Colitis Depression Frequent headaches Hx LEEP (loop electrosurgical excision procedure), cervix, 2006 Low grade squamous intraepith lesion on cytologic smear cervix (lgsil) Perforated nasal septum Surgical History Surgical History History of nasal septoplasty (~03/2021) Family History Family History Mother Family history of mental disorder Family history of alcoholism Social History Social History Smoking status: Never smoker Alcohol intake: current Substance use: never Substance use type: does not use Lack of Transportation: No Lack of Food: Never True Current Housing: I Have Housing Concerned About Future Housing: No Difficulty Paying Gas/Electric Bills: No Difficulty Paying for Meds: No Currently Unemployed: No Education: Associate Degree Difficulty w/ Childcare or Family Care: No Living arrangements: with family Occupation/Education: occupation 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 HEAD: Normocephalic, atraumatic. EYES: PERRLA and EOMI. ENT: Nares clear, no rhinorrhea or epistaxis. Mucous membranes moist. NECK: Supple. CHEST: Clear to auscultation. No respiratory distress. HEART: Regular rate and rhythm. No murmur heard. Normal peripheral pulses. ABDOMEN: Soft, nontender, nondistended, normal active bowel sounds. EXTREMITIES: Normal range of motion. No edema. SKIN: Warm, dry, no rash. NEURO: No focal deficits. Alert and oriented x3. PSYCH: Normal mood and affect. Course Vital Signs Vital signs: Vital Signs Temperature 36.2 C L 09/19/23 15:42 Pulse Rate 97 09/19/23 15:42 Respiratory Rate 18 09/19/23 15:42 Blood Pressure 131/90 09/19/23 15:42 Pulse Oximetry 100 09/19/23 15:42 Oxygen Delivery Room Air 09/19/23 15:42 Temperature 36.2 C L 09/19/23 15:42 Pulse Rate 97 09/19/23 15:42 Respiratory Rate 18 09/19/23 15:42 Blood Pressure 131/90
--- NOTE | 2023-09-19 17:35 | PC.NURSE ---
patient requested to leave before fluids were completed.
[2023-09-19 17:37] VITALS: BP 127/86; PULSE 71; RESP 16; TEMP 36.8; O2SAT 99
== END 2023-09-19 17:38 | disposition home or self-care (01) ==
PROVIDERS: Emergency Provider Emergency Medicine; PCP Family Medicine
DX: R10.31 Right lower quadrant pain (principal); R30.0 Dysuria
CPT/HCPCS: 36415; 74176; 80053; 81003; 81025; 83690; 85025; 96361; 96374; 99284; J2405; J7030

== ENCOUNTER 2023-11-06 11:42 | Outpatient (CLI) | payer OTHER, SELFPAY ==
[2023-11-06 14:37] LABS: Basophils Percent Auto 0.5 % (0.2-1.2); Eosinophils Absolute Auto 0.2 K/mm3 (0-0.3); Eosinophils Percent Auto 2.7 % (0-4.4); Hematocrit 35.3 % (37.0-47.0); Hemoglobin 11.4 g/dL (12.0-15.0); Immature Granulocyte Absolute 0.02 K/mm3 (0.00-0.031); Immature Granulocyte Percent A 0.3 % (0-0.5); Lymphocytes Absolute Auto 2.62 K/mm3 (0.9-3.2); Lymphocytes Percent Auto 33.7 % (18.3-44.2); Mean Corpuscular HGB Conc 32.3 g/dl (32-36); Mean Corpuscular Hemoglobin 30.6 pg (26-34); Mean Corpuscular Volume 94.6 fl (80-100); Mean Platelet Volume 10.2 fl (7.4-10.4); Monocytes Absolute Auto 0.7 K/mm3 (0.1-0.6); Monocytes Percent Auto 9.1 % (2.6-8.5); Neutrophils Absolute Auto 4.2 K/mm3 (1.3-6.7); Neutrophils Percent Auto 53.7 % (45.5-73.1); Platelet Count Result 298 k/mm3 (150-375); Red Blood Count 3.73 M/mm3 (4.2-5.4); Red Cell Distribution Width 12.7 % (11.5-14.5); White Blood Count 7.8 K/mm3 (4.5-10.0)
[2023-11-06 14:51] LABS: Alanine Aminotransferase 14 U/L (6-35); Albumin Level 3.9 g/dL (3.5-5.1); Alkaline Phosphatase 34 U/L (38-126); Anion Gap 8 mmol/L (4-12); Aspartate Amino Transferase 57 U/L (14-36); Bilirubin,Total 0.3 mg/dL (0.2-1.3); Blood Urea Nitrogen 14 mg/dL (7-17); Calcium 8.6 mg/dL (8.4-10.2); Carbon Dioxide 26 mmol/L (22-30); Chloride 103 mmol/L (98-107); Cholesterol 127 mg/dL (0-200); Estimated Glomerular Filt Rate > 60; Glucose 95 mg/dL (65-110); HDL Direct 82 mg/dL; Sodium 137 mmol/L (137-145); Triglycerides 109 mg/dL (<150)
[2023-11-06 15:19] LABS: LDL Cholesterol Direct < 30 mg/dL
[2023-11-06 16:05] LABS: Hemoglobin A1C 5.5 % (<5.7)
[2023-11-11 09:54] LABS: Vitamin D 1,25 (OH)2 Total 77 pg/mL (18-72); Vitamin D2 1,25 (OH)2 <8 pg/mL; Vitamin D3 1,25 (OH)2 77 pg/mL
[2023-11-11 15:33] LABS: Almond (F20) IgE <0.10 kU/L; Cashew Nut (F202) IgE <0.10 kU/L; Cashew Nut (F202) IgE Class 0; Codfish (F3) IgE <0.10 kU/L; Codfish (F3) IgE Class 0; Cow's Milk (F2) IgE 0.12 kU/L; Cow's Milk (F2) IgE Class 0/1; Egg White (F1) IgE <0.10 kU/L; Egg White (F1) IgE Class 0; Hazelnut (F17) IgE <0.10 kU/L; Hazelnut (F17) IgE Class 0; Peanut (F13) IgE <0.10 kU/L; Peanut (F13) IgE Class 0; Salmon (F41) IgE <0.10 kU/L; Salmon (F41) IgE Class 0; Scallop (F338) IgE <0.10 kU/L; Scallop (F338) IgE Class 0; Sesame Seed <0.10 kU/L; Shrimp (F24) IgE <0.10 kU/L; Soybean (F14) IgE <0.10 kU/L; Soybean (F14) IgE Class 0; Tuna (F40) <0.10 kU/L; Tuna (F40) Class 0; Walnut (F256) IgE <0.10 kU/L; Walnut (F256) IgE Class 0; Wheat (F4) IgE <0.10 kU/L; Wheat (F4) IgE Class 0
== END 2023-11-06 11:43 | disposition home or self-care (01) ==
LOC: ANHGOSHLAB 11:43
PROVIDERS: PCP Family Medicine; Visit Provider Nurse Practitioner Family
DX: Z00.00 Encounter for general adult medical examination without abnormal findings (principal); R51.9 Headache, unspecified; E53.8 Deficiency of other specified B group vitamins; E78.5 Hyperlipidemia, unspecified; R10.9 Unspecified abdominal pain; K59.00 Constipation, unspecified; E55.9 Vitamin D deficiency, unspecified
CPT/HCPCS: 36415; 80053; 80061; 82607; 82652; 83036; 84443; 85025; 86003

== ENCOUNTER 2023-11-06 11:59 | Outpatient (CLI) | payer OTHER, SELFPAY ==
--- NOTE | ~2023-11-06 | XR_ITS ---
Lumbosacral Spine: AP, oblique, and lateral views Clinical History: Pain Findings: The normal lordotic curve is maintained. The vertebral bodies and posterior elements are i ntact. The intervertebral disc spaces are preserved. The sacroiliac joints are normally outlined. Impression: No significant abnormality. Reviewed, dictated and finalized at [facility]. Impression: No significant abnormality.
--- NOTE | ~2023-11-06 | XR_ITS ---
AP view of the pelvis and AP and lateral views of the bilateral hips Clinical history: Pain Findings: No acute fracture or dislocation is seen. Osseous alignment is anatomic. Bilateral hip and SI joint spaces are preserved. Soft tissues are unremarkable. Impression: No significant abnormality is seen. Reviewed, dictated and finalized at [facility]. Impression: No significant abnormality is seen.
--- NOTE | ~2023-11-06 | XR_ITS ---
Cervical Spine: AP, lateral, open-mouth views Clinical History: Pain Findings: There is mild reversal of the normal cervical lordosis. No fracture or subluxation evident. There is moderate degenerative disc narrowing at C5-C6.. Pre-vertebral soft tissues are unremarkable . Impression: Mild degenerative disc narrowing at C5-C6. Reversal of the normal cervical lordosis. Reviewed, dictated and finalized at [facility]. Impression: Mild degenerative disc narrowing at C5-C6. Reversal of the normal cervical lordosis.
--- NOTE | ~2023-11-06 | XR_ITS ---
Thoracic spine: Clinical Indication: Muscle tightness AP and lateral views were performed. No fracture is seen. There is normal alignment of the vertebrae. The intervertebral disc spaces appe ar normal. Paravertebral soft tissues appear normal. Impression: No significant abnormalities noted. Reviewed, dictated and finalized at [facility]. Impression: No significant abnormalities noted.
== END 2023-11-06 12:00 ==
PROVIDERS: PCP Family Medicine; Visit Provider Nurse Practitioner Family
DX: M54.50 Low back pain, unspecified (principal); M50.322 Other cervical disc degeneration at C5-C6 level; M25.511 Pain in right shoulder; M25.552 Pain in left hip; M25.551 Pain in right hip
CPT/HCPCS: 72040; 72070; 72110; 73521

== ENCOUNTER 2024-09-23 11:48 | Outpatient (CLI) | payer OTHER, SELFPAY ==
--- OUTSIDE RECORDS SUMMARY | 2024-09-23 11:50 | XMS_ITS | Clinical Summary ---
Author Organization [facility] Address [address] [place], [address] [address] Phone Care Team Providers Care Paper Coater Name Role Phone Ross Reynaga DO Unavailable [phone] Allergies No known active allergies Medications polyethylene glycol (MIRALAX) Powder Mix the entire bottle with 64 oz of a clear liquid. Use as directed by the office for colonoscopy prep. 255 g 0 6 Active Immunizations Immunization Administration Dates Next Due Influenza Vaccine greater than 3 yrs 12/08/2014 Family History Medical History Relation Name Comments Cirrhosis Mother Colon Cancer Paternal Grandfather Lung Cancer Paternal Grandfather Relation Name Status Comments Mother Paternal Grandfather Social History Tobacco Use Types Packs/Day Years Used Date Smoking Tobacco: Never Alcohol Use Standard Drinks/Week Comments No 0 (1 standard drink = 0.6 oz pur e alcohol) Comments No Sex and Gender Information Value Date Recorded Sex Assigned at Not on file Legal Sex Female 9:20 PM CDT Gender Identity Not on file Sexual Orientation Not on file 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 Not on file Not on file Last Filed Vital Signs Vital Sign Reading Time Taken Comments Blood Pressure 100/60 08/09/2015 12:58 PM CDT Pulse 80 08/09/2015 12:58 PM CDT Temperature 36.5 C (97.7 F) 08/09/2015 12:58 PM CDT Respiratory Rate 14 08/09/2015 12:58 PM CDT Oxygen Saturation 98% 08/09/2015 12:58 PM CDT Inhaled Oxygen Concentration - - Weight 58.1 kg (128 lb) 08/09/2015 12:58 PM CDT Height 154.9 cm (5' 1) 08/09/2015 12:58 PM CDT Body Mass Index 24.19 08/09/2015 12:58 PM CDT Plan of Treatment Health Maintenance Due Date Last Done Comments Hepatitis C Virus (HCV) Screening 1980 TdaP Immunization 1980 Hepatitis B Immunization (1 of 3 - 19+ 3-dose series) 12/20/1999 Pap Smear 2001 Cervical Cancer Screening (CCS) 2010 HPV/Cotest 2010 Discussion re Starting/Frequ ency of Mammograms 2020 Influenza Immunization (#1) 2023 12/08/2014 SARS-COV-2 Immunization ( season) 2023 Respiratory Syncytial Virus (RSV) Immunization (Adult) (1 - 1-dose 75+ series) 12/20/2055 Meningococcal Immunization (ACWY) Aged Out No longer eligible based on patient's age to complete this topic Pneumococcal Immunization Combined Aged Out No longer eligible based on patient's age to complete this topic Rotavirus Immunization Aged Out No lo nger eligible based on patient's age to complete this topic Insurance MEDICAID [employer] Care Teams Paper Coater Relationship Specialty Start Date End Date Ross Ryenaga DO Gastroenterology 08/09/15
[2024-09-23 18:10] LABS: Hematocrit 42.3 % (37.0-47.0); Hemoglobin 13.2 g/dL (12.0-15.0); Immature Granulocyte Percent A 0.3 % (0-0.5); Lymphocytes Absolute Auto 2.07 K/mm3 (0.9-3.2); Mean Corpuscular HGB Conc 31.2 g/dl (32-36); Mean Corpuscular Hemoglobin 28.7 pg (26-34); Mean Corpuscular Volume 92.0 fl (80-100); Nucleated Red Blood Cells Absolute Auto 0.000 K/mm3 (0.0-0.012); Nucleated Red Blood Cells Perc 0.0 % (0.0-0.2); Platelet Count Result 343 k/mm3 (150-375); Red Blood Count 4.60 M/mm3 (4.2-5.4); White Blood Count 7.8 K/mm3 (4.5-10.0)
[2024-09-23 18:20] LABS: Alanine Aminotransferase 16 U/L (6-35); Albumin Level 4.4 g/dL (3.5-5.1); Alkaline Phosphatase 49 U/L (38-126); Anion Gap 10 mmol/L (4-12); Aspartate Amino Transferase 40 U/L (14-36); Bilirubin,Total 0.4 mg/dL (0.2-1.3); Blood Urea Nitrogen 12 mg/dL (7-17); Calcium 9.5 mg/dL (8.4-10.2); Carbon Dioxide 26 mmol/L (22-30); Chloride 102 mmol/L (98-107); Cholesterol 182 mg/dL (0-200); Estimated Glomerular Filt Rate > 60; Glucose 75 mg/dL (65-110); HDL Direct 97 mg/dL; Potassium 4.1 mmol/L (3.4-5.0); Sodium 138 mmol/L (137-145); Total Protein 7.9 g/dL (6.3-8.2); Triglycerides 95 mg/dL (<150)
[2024-09-23 18:43] LABS: Thyroid Stimulating Hormone Reflex < 0.015 uIU/mL (0.465-4.68)
[2024-09-24 13:52] LABS: Free T4 Free Thyroxine Reflex 1.08 ng/dL (0.78-2.19)
[2024-09-24 16:56] LABS: Total Triiodothyronine (T3) 1.32 NG/ML (0.82-1.58)
== END 2024-09-23 11:49 | disposition home or self-care (01) ==
LOC: ANHGOSHLAB 11:48
PROVIDERS: PCP Nurse Practitioner Family; Visit Provider Nurse Practitioner Family
DX: Z00.00 Encounter for general adult medical examination without abnormal findings (principal); Z13.220 Encounter for screening for lipoid disorders; K59.00 Constipation, unspecified; F41.9 Anxiety disorder, unspecified
CPT/HCPCS: 36415; 80053; 80061; 84439; 84443; 84480; 85025

== ENCOUNTER 2024-11-23 14:07 | Outpatient (CLI) | payer OTHER, SELFPAY ==
--- OUTSIDE RECORDS SUMMARY | 2024-11-23 14:48 | XMS_ITS | Clinical Summary ---
Author Organization [facility] [address] [facility] [place] [address] Care Team Providers Care Certified Optician Name Role Phone Rosa Martinez MD Primary Care Provider Allergies No known active allergies Medications cetirizine (ZyrTEC) 10 mg tablet Take 10 mg by mouth daily Active EluRyng 0.12-0.015 mg/24 hr vaginal ring 11/21/2021 Act nessa predniSONE (DELTASONE) 10 mg tabletIndication s:Hives of unknown origin Take 4 tabs days 1&2, 3 tabs days 3 & 4, 2 tabs days 5 & 6, 1 tab days 7-10. 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 Gender Identity Not on file Sexual Orientation Not on file Obstetrics History Last Filed Vital Signs Vital Sign Reading Time Taken Comments Blood Pressure 125/85 12/08/2021 5:52 PM CDT Pulse 101 12/08/2021 5:52 PM CDT Temperature 37.4 C (99.4 F) 12/08/2021 5:52 PM CDT Respiratory Rate 16 12/08/2021 5:52 PM CDT Oxygen Saturation 99% 12/08/2021 5:52 PM CDT Inhaled Oxygen Concentration - - Weight 56.7 kg (125 lb) 12/08/2021 5:52 PM CDT Height 154.9 cm (5' 1) 12/08/2021 5:52 PM CDT Body Mass Index 23.62 12/08/2021 5:52 PM CDT Plan of Treatment Health Maintenance Due Date Last Done Comments Breast Cancer Screening-Mammogram 1980 Cervical Cancer Screening 1980 Depression Screening 1980 Varicella Vaccines (1 of 2 - 13+ 2-dose series) 1993 Regular Well Visit/Exam 18-64 1998 HPV Vaccines (1 - 3-dose SCD M series) 12/20/2007 Covid-19 Vaccine (4 - 2024-2 6 season) 2024 02/21/2021, 08/02/2020, 07/10/2020 Influenza Vaccine (#1) 2024 , 12/08/2014, 06/08/2014 DTaP/Tdap/Td Vaccine (3 - Td or Tdap) 09/13/2031 09/12/2021, 03/11/2011, 04/07/1996 Hepatitis B Screening Completed 10/15/2011 , 04/25/2011, 03/11/2011 Hepatitis C Screening Completed 09/19/2013 , 03/23/2013, 04/16/2012 Pneumococcal vaccine <65 Aged Out No longer eligible based on patient's age to complete this topic Procedures Procedure Name Priority Date/Time Associated Diagnosis Comments SERUM HEPATITIS C AB Routine 09/19/2013 7:52 AM CDT from Last 3 Months or Most Recently Relevant to Health Maintenance Results * Serum Hepatitis C ab (09/19/2013 7:52 AM CDT) HCV ab Negative NEG HISTORICAL RESULTS Serum 09/19/2013 7:52 AM CDT Narrative HISTORICAL RESULTS - 09/20/2013 3:38 AM CDT Interpretive Data If confirmation is required, call Laboratory Customer Service to request sample to be sent to [facility] for Hepatitis C Virus (HCV) RNA Detection and Quantitation by Real-Time Reverse Healthcare Recruiter-PCR (RT-PCR). Current interpretive data was last revised on 2011 Leila Montoya PICK UP LAB BLOOD ORDERABLES Final Result HISTORICAL RESULTS from Last 3 Months or Most Recently Relevant to Health Maintenance Insurance [facility] Care Teams Certified Optician Relationship Specialty Start Date End Date Rosa Martinez MD PCP - General Family Practice 12/08/21
--- OUTSIDE RECORDS SUMMARY | 2024-11-23 14:48 | XMS_ITS | Clinical Summary ---
Author Organization [facility] Address [address] [place], [address] [address] Phone Care Team Providers Care Dehydrator Tender Name Role Phone Ross Reynaga DO Unavailable [phone] Allergies No known active allergies Medications [...] 19+ 3-dose series) 12/20/1999 Pap Smear 2001 Human Papillomavirus (HPV) Immunization (1 - 3-dose SCDM series) 12/20/2007 Cervical Cancer Screening (CCS) 2010 HPV/Cotest 2010 SARS-COV-2 Immunization ( season) 2023 Influenza Immunization (#1) 2024 12/08/2014 Respiratory Syncytial Virus (RSV) Immunization (Adult) (1 [...] Insurance MEDICAID [employer] Care Teams Dehydrator Tender Relationship Specialty Start Date End Date Ross Reynaga DO Gastroenterology 08/09/15
[2024-11-23 19:04] LABS: Thyroid Stimulating Hormone Reflex 1.550 uIU/mL (0.465-4.68)
[2024-11-23 19:12] LABS: Total Triiodothyronine (T3) 1.59 NG/ML (0.82-1.58)
== END 2024-11-23 14:08 | disposition home or self-care (01) ==
LOC: ANHGOSHLAB 14:08
PROVIDERS: PCP Nurse Practitioner Family; Visit Provider Nurse Practitioner Family
DX: R79.89 Other specified abnormal findings of blood chemistry (principal)
CPT/HCPCS: 36415; 84443; 84480